=== PATIENT | female | born 1980 | race Caucasian/White ===

== ENCOUNTER 2016-12-05 12:56 | Emergency (ER) | payer OTHER ==
[2016-12-05 13:46] LABS: Hematocrit 39 % (35-47); Hemoglobin 13.1 g/dl (12.0-16.0); Mean Corpuscular HGB Conc 33 g/dl (31-36); Mean Corpuscular Hemoglobin 30 pg (27-31); Mean Corpuscular Volume 91 fL (80-97); Mean Platelet Volume 9 um3 (7.4-10.4); Red Blood Count 4.31 10^6/ul (4.0-5.4); Red Cell Distribution Width 14 % (10.5-15); White Blood Count 12.2 10^3/ul (3.5-10.8)
[2016-12-05 14:02] LABS: ALT 6 U/L (7-52); AST 10 U/L (13-39); Albumin 3.8 g/dL (3.2-5.2); Alkaline Phosphatase 61 U/L (34-104); Anion Gap 7 mmol/L (2-11); BUN/Creatinine Ratio 14.3 (8-20); Blood Urea Nitrogen 10 mg/dL (6-24); CO2 Carbon Dioxide 28 mmol/L (22-32); Calcium 8.7 mg/dL (8.6-10.3); Chloride 102 mmol/L (101-111); EGFR African American 120.4 (>60); EGFR Non-African American 93.6 (>60); Globulin 2.7 g/dL (2-4); Glucose 117 mg/dL (70-100); Potassium 3.6 mmol/L (3.5-5.0); Sodium 137 mmol/L (133-145); Total Protein 6.5 g/dL (6.4-8.9)
[2016-12-05 14:23] LABS: Acetaminophen < 15 mcg/mL; Alcohol < 10 mg/dL (<10); Salicylate < 2.50 mg/dL (<30)
[2016-12-05 14:54] LABS: Urine Bacteria 2+ (Absent); Urine Bilirubin Negative (Negative); Urine Glucose Negative (Negative); Urine Nitrite Positive (Negative)
[2016-12-05 16:10] LABS: Benzodiazepine Urine Screen Presumptive Positive (None Detect)
[2016-12-05 17:55] VITALS: BP 129/78
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
--- NOTE | 2016-12-09 08:44 | ED ---
Progress - Progress Note Progress Note: Pt's urine cx reveals e. coli UTI - no tx was initiated. Call to pt - no option to leave message. Called Mom (Vlae) listed in chart - she will notify pt and reports pt's phone does not get a good signal in her house. Provided Bety's son 's girlfriend's # - LMTC on this VM. Will also mail letter to house. Mom reports pt uses [facility]. Will send anbx there. Pt also needs to f/u w/ PCP. If you have high fever, ab pain, vomiting, flank pain, return to ED. - Consult/PCP Time Called: 17:05 Course/Dx - Course Course Of Treatment: Medically cleared for MHU evaluation at 17:09. - Diagnoses Provider Diagnoses: Polysubstance abuse
== END 2016-12-05 19:19 | disposition home or self-care (01) ==
LOC: ED 12:56
DX: F19.10 Other psychoactive substance abuse, uncomplicated (principal); F17.210 Nicotine dependence, cigarettes, uncomplicated
CPT/HCPCS: 36415; 80053; 80307; 80320; 80329; 81003; 81015; 83605; 84702; 85025; 86703; 87077; 87086; 87186; 99284; G0480

== ENCOUNTER 2017-12-13 17:37 | Emergency (ER) | payer SELFPAY ==
--- OUTSIDE RECORDS SUMMARY | 2017-12-13 17:43 | XMS REPORT ---
:1980 External Reference #:[id number] Author Organization [employer] Address [address] [address] Phone [phone] Care Team Providers Name Role Phone Jani Ricks MD Primary Care Physician Unavailable Payers Type Date Identification Numbers Payment Provider Subscriber Commercial Policy Number: [id number] [place]/[employer] Helen Finch PayID: [id number] [address] [address] [place] [address] Problems Date Description Provider Status Onset: 11/01/2016 Panic disorder with agoraphobia Jani Ricks M.D. Active Onset: 11/01/2016 Stress incontinence (female) (male) Jani Ricks M.D. Active Onset: 11/15/2016 Contact dermatitis Jani Ricks M.D. Active Onset: 08/20/2017 Generalized anxiety disorder Kelin Mcdaniel M.D. Active Onset: 08/20/2017 Nondependent opioid abuse in Kelin Mcdaniel M.D. Active remission Onset: 11/01/2016 Low back pain Jani Ricks M.D. 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 needed for anxiety Alprazolam 08/20/ Active Tablets 0.25mg 14tab 1 tab for as F41.1 Kelin 2018 s needed for Mcdaniel, severe M.D. anxiety attack not controlled with hydroxyzine Betamethasone 11/15/ Active Cream 0.05% 50gm apply twice L30.9 Jani Dipropionate 2016 a day Ryan Ricks Escitalopram 11/15/ Hx Tablets 10mg 30tab Not F40.01 Jani Oxalate 2017 - s taking---1 Pachikara 12/26/ by mouth , M.DEpifanio 2017 every day Fluoxetine HCL 11/01/ Hx Capsules 40mg 30cap 1 by mouth Other 2016 - s every day Ordering 11/15/ Provider 2017 Alprazolam 11/01/ Hx Tablets 0.25mg 20tab one by mouth F40.01 Jani 2017 - Dispers s 8h up to two Pachikara 11/01/ times daily , M.D. 2017 as needed for anxiety Tramadol HCL 11/01/ Hx Tablets 50mg 45tab three times M54.5 Jani 2017 - s a day as Pachikara 08/20/ needed , M.DEpifanio 2017 Alprazolam 11/01/ Hx Tablets 0.25mg 30tab one by mouth F40.01 [place] 2017 - s 8h up to two Pachikara 12/20/ times daily , M.D. 2016 as needed for anxiety Escitalopram 11/01/ Hx Tablets 5mg 30tab 1 by mouth F40.01 Jani Oxalate 2017 - s every day Pachikara 11/15/ , Caitlyn.DEpifanio 2017 Vital Signs Date Vital Result Comment 11/27/2017 Height 55 inches 4'7" Weight 150.50 lb Heart Rate 52 /min BP Systolic Sitting 118 mmHg BP Diastolic Sitting 76 mmHg Body Temperature 97.1 F O2 % BldC Oximetry 96 % BMI (Body Mass Index) 35.0 kg/m2 08/20/2017 Weight 151.00 lb Heart Rate 73 /min BP Systolic Sitting 120 mmHg BP Diastolic Sitting 76 mmHg O2 % BldC Oximetry 98 % 11/15/2016 Weight 165.00 lb Heart Rate 62 /min BP Systolic Sitting 120 mmHg BP Diastolic Sitting 82 mmHg Body Temperature 97.8 F O2 % BldC Oximetry 98 % 11/01/2016 Height 55 inches 4'7" Weight 155.12 lb Heart Rate 75 /min BP Systolic Sitting 122 mmHg BP Diastolic Sitting 78 mmHg Body Temperature 97.8 F O2 % BldC Oximetry 97 % BMI (Body Mass Index) 36.1 kg/m2 Results Test Date Test Result H/L Range Note Laboratory test 11/27/2017 Cytology <pending> finding CBC Auto Diff 07/13/2012 White Blood Count 10.1 10^3/uL 4.8-10.8 Red Blood Count 4.19 10^6/uL 4.0-5.4 Hemoglobin 13.5 g/dL 12.0-16.0 Hematocrit 40 % 35-47 Mean Corpuscular Volume 95 fL 80-97 Mean Corpuscular Hemoglobin 32 pg High 27-31 Mean Corpuscular HGB Conc 34 g/dL 31-36 Red Cell Distribution Width 14 % 10.5-15 Platelet Count 265 10^3/uL 150-450 Mean Platelet Volume 9 um3 7.4-10.4 Abs Neutrophils 6.5 10^3/uL 1.5-7.7 Abs Lymphocytes 2.5 10^3/uL 1.0-4.8 Abs Monocytes 0.4 10^3/uL 0-0.8 Abs Eosinophils 0.5 10^3/uL 0-0.6 Abs Basophils 0.1 10^3/uL 0-0.2 Abs Nucleated RBC 0 10^3/uL Granulocyte % 64.4 % 38-83 Lymphocyte % 25.0 % 25-47 Monocyte % 4.3 % 1-9 Eosinophil % 5.2 % 0-6 Basophil % 1.1 % 0-2 Nucleated Red Blood Cells % 0 Comp Metabolic Panel 07/13/2012 Sodium 137 mmol/L 133-145 Potassium 4.3 mmol/L 3.5-5.0 Chloride 104 mmol/L 101-111 Co2 Carbon Dioxide 28.0 mmol/L 22-32 Anion Gap 5.0 mmol/L 2-11 Glucose 103 mg/dL High 70-100 Blood Urea Nitrogen 17 mg/dL 6-24 Creatinine 0.70 mg/dL 0.50-1.40 BUN/Creatinine Ratio 24.3 High 8-20 Calcium 8.9 mg/dL 8.1-9.9 Total Protein 6.8 g/dL 6.2-8.1 Albumin 4.0 g/dL 3.6-5.4 Globulin 2.8 g/dL 2-4 Albumin/Globulin Ratio 1.4 1-3 Total Bilirubin 0.4 mg/dL 0.4-1.5 Alkaline Phosphatase 62 U/L 30-110 Alt 22 U/L 14-54 Ast 18 U/L 12-42 Egfr Non- 95.8 >60 Egfr 123.2 >60 1 Urinalysis 07/13/2012 Urine Color Yellow Urine Appearance Cloudy Urine Specific [place] 1.020 1.010-1.030 Urine Esterase 3+ Negative Urine Nitrate Negative Negative Urine Urobilinogen Negative E.U./dL Negative Urine Protein 1+ mg/dL Negative Urine pH 7.0 5-9 Urine Blood 2+ Negative Urine Ketones Negative mg/dL Negative Urine Bilirubin Negative Negative 2 Urine Glucose Negative mg/dL Negative Urine Microscopic 07/13/2012 Urine WBC 3+ (>30 /hpf) None Seen Urine RBC 2+ (>3-10 /hpf) None Seen Urine Epithelial Cells 1+ Squamous /hpf None Seen Urine Culture And Sensitivities 07/13/2012 Urine Culture (SEE NOTE) 3 1 Because ethnic data is not always readily available, this report includes an eGFR for both -Americans and non- Americans. The National Kidney Disease Education Program (NKDEP) does not endorse the use of the MDRD equation for patients that are not between the ages of 18 and 70, are , have extremes of body size, muscle mass, or nutritional status, or are non- or non-. According to the National Kidney Foundation, irrespective of diagnosis, the stage of the disease is based on the level of kidney function: Stage Description GFR(mL/min/1.73 m(2)) 1 Kidney damage with normal or decreased GFR 90 2 Kidney damage with mild decrease in GFR 60-89 3 Moderate decrease in GFR 30-59 4 Severe decrease in GFR 15-29 5 Kidney failure <15 (or dialysis) 2 Effective 07/02/12, bilirubin confirmation by ictotest is discontinued. False-positive results for bilirubin may occur due to color interference from large amounts of blood in the urine, very concentrated urine, or drugs that discolor urine such as phenazopyridine(Pyridium). 3 RUN DATE: 07/17/12 [facility] LAB LIVE PAGE 1 RUN TIME: [address] [place] [address] Specimen Inquiry Name: HELEN FINCH Concepcion : [address]: Brock Bryant MD Acct: [id number] Unit: [id number] AGE: 32 Location: ED Re07/13/12 SEX: F Status: DEP ER SPEC: [id number] JERMAINE: 07/13/12-[address] [facility] DR: Telma Lynne RPA REQ: [id number] RECD: 07/13/12 STATUS: COMP JESUS DR: Andry WINTERS,Brock Marshall MD _ SOURCE: URINE [facility]: ORDERED: Urine Culture Procedure Result Verified Site Urine Culture Final 07/17/12- 1037 ML Organism 1 COAG NEGATIVE STAPHYLOCOCCUS [place] Count 25-50,000 (Moderate) CFU/ML 1. COAG NEGATIVE STAPHYLOCOCCUS M.I.C. RX --------- ------ Penicillin 0.25 R Ciprofloxacin <=0.5 S Gentamicin <=0.5 S Levofloxacin 0.5 S Linezolid 4 S * Moxifloxacin <=0.25 S Nitrofurantoin <=16 S Oxacillin S * Quinupristin/Dalfopristin 0.5 S Rifampin <=0.5 S Tetracycline <=1 S Doxycycline - Deduced S * Minocycline - Deduced S Tigecycline <=0.12 S Vancomycin <=0.5 S Imipenem-Deduced S Ampicillin/Sulbactam-Deduced S Cefazolin-Deduced S CONTINUED ON NEXT PAGE * ML=Testing performed at Main Lab DEPARTMENT OF PATHOLOGY, [facility] [employer] [place], [place] [address] Angel Menchaca M.D. Director [facility] Permit #[id number] RUN DATE: 07/17/12 [facility] LAB LIVE PAGE 2 RUN TIME: [address] [facility] [employer] [place], [place] [address] Specimen Inquiry Patient: HELEN FINCH [id number] (Continued) Specimen: [id number] Collected: 07/13/12 Received: 07/13/12 (Continued) Procedure Result Verified Site Urine Culture Final (continued) * These antibiotics are not available in the [facility] Formulary Contact the Microbiology Department for any additional antibiotic reporting. END OF REPORT * ML=Testing performed at Main Lab DEPARTMENT OF PATHOLOGY, [address] [place] [address] Angel Menchaca M.D. Director [facility] Permit #[id number] Procedures Description No Information Encounters Type Date Location Provider CPT E/M Dx Office Visit 08/20/2017 10:10a [facility] Kelin Mcdaniel M.D. [address]2985 F41.1 - [place] N39.3 Office Visit 11/15/2016 1:20p [facility] Jani Ricks, [address] F40.01 Medicine - [place] Jorden Davis M54.5 L30.9 Office Visit 11/01/2016 2:00p [facility] Jani Ricks M.D. 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 If this is normal wewill repeat it in 4-5 years.Follow up:PE at your dwgdpkeodkxO74.0 Excessive and frequent menstruation with regular cycleComments:Discussed hormone tx to manipulate menstrual cycle.Because you are a smoker combines ora contraceptives are contraindicated.Taking progestin would be a possibility but I do not recommend because of your history of depression.We should get a blood count it you notice increased fatigue.Increase iron rich food intake or you may take iron mvtmyhufkuS29.3 Stress incontinence (female) (male)Referral:Дмитрий Lyons MD, VtvdhbbtntG11.210 Nicotine dependence, cigarettes, qxihufvvusvvrB57.1 Generalized anxiety disorderComments:I sent rx for Prozac to your pharmacy
[2017-12-13 17:53] VITALS: BP 126/78
--- NOTE | 2017-12-13 18:37 | UC ---
Dental HPI - HPI Summary HPI Summary: 37 yo WF c/o tooth #18 pain after it broke a few weeks ago, failed to go to dentist, it has a cavity in it but not known how deep, pain is so bad in spite of taking Ibuprofen - History of Current Complaint Chief Complaint: UCDentalProblem Stated Complaint: DENTAL PAIN Time Seen by Provider: 12/13/17 18:11 Hx Last Menstrual Period: [id number] Onset/Duration: Sudden Onset Severity: Severe Pain Intensity: 8 Aggravating Factor(s): Chewing Alleviating Factor(s): Nothing - Allergies/Home Medications Allergies/Adverse Reactions: Allergies Allergy/AdvReac Type Severity Reaction Status Date / Time prednisone Allergy Difficulty Verified 12/13/17 17:54 Breathing Home Medications: Home Medications Prozac* 10 mg PO DAILY 12/13/17 [History Confirmed 12/13/17] PMH/Surg Hx/FS Hx/Imm Hx Previously Healthy: Yes Other History Of: Negative For: Anticoagulant Therapy - Surgical History Surgical History: Yes Surgery Procedure, Year, and Place: tubal ligation - Family History Known Family History: Positive: Cardiac Disease, Hypertension - Social History Alcohol Use: None Substance Use Type: None Substance Use Comment - Amount & Last Used: "occasionally" Smoking Status (MU): Light Every Day Tobacco Smoker Household Exposure Type: Cigarettes Review of Systems Constitutional: Negative Skin: Negative Eyes: Negative ENT: Dental Pain Respiratory: Negative Cardiovascular: Negative Gastrointestinal: Negative Genitourinary: Negative Motor: Negative Neurovascular: Negative Musculoskeletal: Negative Neurological: Negative Psychological: Negative All Other Systems Reviewed And Are Negative: Yes Physical Exam Triage Information Reviewed: Yes Appearance: No Pain Distress Vital Signs: Initial Vital Signs Temp 37.0 C 12/13/17 17:47 Pulse 71 12/13/17 17:47 Resp 16 12/13/17 17:47 BP 126/78 12/13/17 17:47 Pulse Ox 100 12/13/17 17:47 Eye Exam: Normal ENT Exam: Normal Dental Exam: Normal Dental: Positive: Gross Decay/Caries @ - diffuse-with cavitites with filling, Dental Fracture @ - tooth #18, fractured medially- 4mm hole/cavity Neck exam: Normal Neck: Positive: 1 Respiratory Exam: Normal Cardiovascular Exam: Normal Abdominal Exam: Normal Musculoskeletal Exam: Normal Neurological Exam: Normal Psychological Exam: Normal Skin Exam: Normal Dental Complaint Course/Dx - Differential Dx/Diagnosis Differential Diagnosis/Dx: Dental Abscess, Dental Caries, Fractured Tooth, Gingivitis, Odontogenic Pain, Peridontic Disease Provider Diagnoses: tooth fracture. periodontal disease. dental cavity Discharge - Sign-Out/Discharge Documenting (check all that apply): Discharge/Admit/Transfer - Discharge Plan Condition: Stable Disposition: HOME Prescriptions: Clindamycin HCl 300 mg PO QID 10 Days #40 capsule oxyCODONE/Acetamin 5/325 MG* [Percocet 5/325 TAB*] 1 tab PO Q6H PRN 2 Days #8 tab MDD 4 PRN Reason: Pain Patient Education Materials: Toothache (ED) Referrals: Non Staff,Doctor [Primary Care Provider] - Additional Instructions: please follow up with dentist maite - Billing Disposition and Condition Condition: STABLE Disposition: HOME
== END 2017-12-13 18:38 | disposition home or self-care (01) ==
LOC: UCEAST 17:37
DX: S02.5XXA Fracture of tooth (traumatic), initial encounter for closed fracture (principal); K05.6 Periodontal disease, unspecified; K02.9 Dental caries, unspecified; Z88.8 Allergy status to other drugs, medicaments and biological substances; F17.210 Nicotine dependence, cigarettes, uncomplicated
CPT/HCPCS: 99202; G0463

== ENCOUNTER 2018-08-02 15:20 | Emergency (ER) | payer SELFPAY ==
[2018-08-02 15:32] VITALS: BP 140/97
--- NOTE | 2018-08-02 15:43 | UC ---
[facility] HPI - HPI Summary HPI Summary: pain and swelling left lower jaw---has a broken molar and impacted wisdom tooth on that side-- - History of Current Complaint Chief Complaint: UCDentalProblem Stated Complaint: DENTAL Time Seen by Provider: 08/02/18 15:24 Hx Obtained From: Patient Hx Last Menstrual Period: [id number] ?: No Onset/Duration: Sudden Onset, Lasting Days, Still Present Pain Intensity: 6 Pain Scale Used: 0-10 Numeric Aggravating Factor(s): Nothing Alleviating Factor(s): Nothing Related History: Previous Dental Care on Same Tooth, Swelling - Allergies/Home Medications Allergies/Adverse Reactions: Allergies Allergy/AdvReac Type Severity Reaction Status Date / Time prednisone Allergy Difficulty Verified 08/02/18 15:33 Breathing PMH/Surg Hx/FS Hx/Imm Hx Previously Healthy: No Psychological History: Anxiety, Depression Other History Of: Negative For: Anticoagulant Therapy - Surgical History Surgical History: Yes Surgery Procedure, Year, and Place: tubal ligation - Family History Known Family History: Positive: Cardiac Disease, Hypertension - Social History Occupation: Unemployed Lives: With Family Alcohol Use: None Substance Use Type: None Substance Use Comment - Amount & Last Used: "occasionally" Smoking Status (MU): Heavy Every Day Tobacco Smoker Have You Smoked in the Last Year: Yes Household Exposure Type: Cigarettes Cessation Counseling: Counseled 3+Min - 10 Min Review of Systems All Other Systems Reviewed And Are Negative: Yes Constitutional: Positive: Negative Skin: Positive: Negative Eyes: Positive: Negative ENT: Positive: Dental Pain Respiratory: Positive: Negative Cardiovascular: Positive: Negative Gastrointestinal: Positive: Negative Genitourinary: Positive: Negative Motor: Positive: Negative Neurovascular: Positive: Negative Musculoskeletal: Positive: Negative Neurological: Positive: Negative Psychological: Positive: Negative Is Patient Immunocompromised?: No Physical Exam Triage Information Reviewed: Yes Appearance: Well-Appearing, Well-Nourished, Pain Distress Vital Signs: Initial Vital Signs Temp 99.4 F 08/02/18 15:29 Pulse 85 08/02/18 15:29 Resp 16 08/02/18 15:29 BP 140/97 08/02/18 15:29 Pulse Ox 98 08/02/18 15:29 Vital Signs Reviewed: Yes Eye Exam: Normal Eyes: Positive: Conjunctiva Clear ENT Exam: Normal ENT: Positive: Normal ENT inspection, Hearing grossly normal, Pharynx normal, TMs normal, Dental tenderness, Uvula midline. Negative: Nasal congestion, Tonsillar swelling, Tonsillar exudate, Trismus, Muffled voice, Hoarse voice, Sinus tenderness Dental Exam: Other Dental: Positive: Percussion Tenderness @, Dental Fracture @, Abscess @ Neck exam: Normal Neck: Positive: Supple, Nontender, No Lymphadenopathy Respiratory Exam: Normal Respiratory: Positive: Chest non-tender, No respiratory distress, No accessory muscle use Cardiovascular Exam: Normal Cardiovascular: Positive: RRR, Pulses Normal, Brisk Capillary Refill Musculoskeletal Exam: Normal Musculoskeletal: Positive: Strength Intact, ROM Intact, No Edema Neurological Exam: Normal Neurological: Positive: Alert, Muscle Tone Normal Psychological Exam: Normal Skin Exam: Normal Dental Complaint Course/Dx - Course Course Of Treatment: smiking cesastion information provided, follow up for elevated blood pressure and access to dental care provided tx with ibuprofen vicoden augmentin - Differential Dx/Diagnosis Provider Diagnosis: Hypertension, Nicotine dependence, Dental abscess Discharge - Sign-Out/Discharge Documenting (check all that apply): Patient Departure All imaging exams completed and their final reports reviewed: No Studies - Discharge Plan Condition: Stable Disposition: HOME Prescriptions: Amoxicillin/Clavulanate TAB* [Augmentin TAB 500 mg*] 875 mg PO BID #20 tab Hydrocodone/Acetaminophen [Hydrocodone-Acetamin 5-325 mg] 1 each PO Q6HR PRN # 12 tablet MDD 4 PRN Reason: pain Ibuprofen TAB* [Motrin TAB* 800 MG] 800 mg PO Q8H PRN #30 tab PRN Reason: Pain Patient Education Materials: How to Stop Smoking (ED), Dental Abscess (ED), Hypertension (ED) Referrals: [facility] [Outside] - As Soon As Possible - Billing Disposition and Condition Condition: STABLE Disposition: Home
== END 2018-08-02 16:00 | disposition home or self-care (01) ==
LOC: UCEAST 15:20
DX: K04.7 Periapical abscess without sinus (principal); F17.210 Nicotine dependence, cigarettes, uncomplicated; Z88.8 Allergy status to other drugs, medicaments and biological substances
CPT/HCPCS: 99212; G0463